=== PATIENT | male | born 1970 ===

== ENCOUNTER 2016-09-13 13:23 | Emergency (ER) | payer OTHER ==
[2016-09-13] MEDS ORDERED: Albuterol 0.083% Inhal Sol (2.5 mg/3 mL) UD INH STA (13:42)
[2016-09-13] MEDS ORDERED: Albuterol 0.083% Inhal Sol (2.5 mg/3 mL) UD ONE (13:47)
--- NOTE | 2016-09-13 14:39 | C.PDOC ---
History Of Present Illness The patient presents to the ED for evaluation of cough which began around 2 weeks ago. Patient states his symptoms began with cough, fever and chills. The fever and chills resolved after 2 days but patient states his cough has continued and has been productive of yellow sputum. Patient has not taken any medication for his symptoms. Patient reports he recently quit smoking around 3 weeks ago. Patient denies fever, chills, shortness of breath, and diarrhea. Patient denies PMHx and states he is currently taking pre-exposure prophylaxis for HIV. Patient's prior HIV test has been negative. Time Seen by Provider: 09/13/16 13:36 Chief Complaint (Nursing): Cough, Cold, Congestion History Per: Patient History/Exam Limitations: no limitations Onset/Duration Of Symptoms: Other (around 2 weeks ago ) Current Symptoms Are (Timing): Still Present Additional History Per: Patient Past Medical History Reviewed: Historical Data, Nursing Documentation, Vital Signs Vital Signs: Last Vital Signs Temp 98.3 F 09/13/16 14:45 Pulse 86 09/13/16 14:45 Resp 18 09/13/16 14:45 BP 114/75 09/13/16 14:45 Pulse Ox 94 L 09/15/16 08:57 - Medical History PMH: No Chronic Diseases Surgical History: No Surg Hx Family History: States: Unknown Family Hx - Social History Hx Tobacco Use: No Hx Alcohol Use: No Hx Substance Use: No Review Of Systems Constitutional: Negative for: Fever, Chills Respiratory: Positive for: Cough, Sputum (yellow ). Negative for: Shortness of Breath Physical Exam - Physical Exam Appears: Non-toxic, No Acute Distress Skin: Normal Color, Warm, Dry Head: Atraumatic, Normacephalic Eye(s): bilateral: Normal Inspection Ear(s): Bilateral: Normal Nose: Normal, No Discharge Oral Mucosa: Moist Throat: Normal, No Erythema, No Exudate Neck: Normal ROM, Supple Chest: Symmetrical, No Deformity, No Tenderness Cardiovascular: Rhythm Regular, No Murmur Respiratory: No Rales, Rhonchi (scattered ), No Wheezing Back: Normal Inspection, No Vertebral Tenderness, No Paraspinal Tenderness Extremity: Normal ROM, Capillary Refill (less than 2 seconds) Neurological/Psych: Oriented x3, Normal Speech, Normal Cognition Gait: Steady ED Course And Treatment O2 Sat by Pulse Oximetry: 94 - Other Rad CXR X-Ray: Interpreted by Me, Viewed By Me, Read By Radiologist Interpretation: Accession No. : [id number]. Patient Name / ID : FIDE [id number] / [id number]. Exam Date : 09/13/2016 13:44:47 ( Approved ). Study Comment : Sex / Age : M / 45Y. Creator : Sajan Stewart MD. Dictator : Sajan Stewart MD. Supervisor Of Operations : [employer] Set Up Operator : Sajan Stewart MD. Approver2 : Report Date : 09/13/2016 15:58:32. My Comment : . HISTORY: Cough. COMPARISON: No prior. TECHNIQUE: Chest PA and lateral. FINDINGS: LUNGS: Mild venous congestion. Mild left basilar atelectasis. Right hilar prominence. PLEURA: No significant pleural effusion identified. No pneumothorax apparent. CARDIOVASCULAR: Normal. OSSEOUS STRUCTURES: Degenerative changes in the spine. VISUALIZED UPPER ABDOMEN: Normal. OTHER FINDINGS: None. IMPRESSION: Mild venous congestion. Mild left basilar atelectasis. Right hilar prominence. Medical Decision Making Medical Decision Making: CXR ordered, results are unremarkable. Patient received Albuterol INH, with some improvement. Results discussed with pt Plan abx not indicated, rx mdi Disposition - Disposition Disposition: HOME/ ROUTINE Disposition Time: 14:37 Condition: GOOD Prescriptions: Inhaler, Assist Devices [Space Chamber Plus] 1 each MC PRN #1 spacer Albuterol HFA [Ventolin HFA 90 mcg/actuation (8 g)] 1 puff IH QID PRN #1 puff PRN Reason: Cough Instructions: Upper Respiratory Infection (ED), Acute Cough (ED) - Clinical Impression Clinical Impression: Upper respiratory infection, Cough - Scribe Statement The provider has reviewed the documentation as recorded by the Scribe (Aydee Chauhan) Provider Attestation: All medical record entries made by the Scribe were at my direction and personally dictated by me. I have reviewed the chart and agree that the record accurately reflects my personal performance of the history, physical exam, medical decision making, and the department course for this patient. I have also personally directed, reviewed, and agree with the discharge instructions and disposition.
[2016-09-13 14:47] VITALS: BP 114/75; PULSE 86; RESP 18; TEMP 98.3
[2016-09-13 15:02] VITALS: O2SAT 94
--- NOTE | 2016-09-13 16:00 | RAD ---
HISTORY: Cough. COMPARISON: No prior. TECHNIQUE: Chest PA and lateral FINDINGS: LUNGS: Mild venous congestion. Mild left basilar atelectasis. Right hilar prominence. PLEURA: No significant pleural effusion identified. No pneumothorax apparent. CARDIOVASCULAR: Normal. OSSEOUS STRUCTURES: Degenerative changes in the spine. VISUALIZED UPPER ABDOMEN: Normal. OTHER FINDINGS: None. IMPRESSION: Mild venous congestion. Mild left basilar atelectasis. Right hilar prominence.
== END 2016-09-13 16:02 | disposition home or self-care (01) ==
LOC: C.ER 13:23
DX: J06.9 Acute upper respiratory infection, unspecified (principal)